=== PATIENT | male | born 1945 | race Two or more races ===

== ENCOUNTER 2017-12-11 09:34 | Emergency (ER) | payer BC, MEDICARE ==
[~2017-12-11] VITALS: Ht 172.7 cm; Wt 78.7 kg
[2017-12-11 09:44] VITALS: BP 165/83
[2017-12-11] MEDS ORDERED: MORPHINE SULFATE INJ 2 MG/ML DISP.SYRIN IM ONE (10:00)
[2017-12-11] MEDS ORDERED: MORPHINE SULFATE INJ 4 MG/ML DISP.SYRIN ONE (10:08)
== END 2017-12-11 11:03 | disposition home or self-care (01) ==
LOC: ER 09:41
DX: M24.812 Other specific joint derangements of left shoulder, not elsewhere classified (principal)
CPT/HCPCS: 73030; 96372; 99284; A4606; J2270; Z7610

== ENCOUNTER 2019-03-04 23:15 | Emergency (ER) | payer BC ==
[~2019-03-04] VITALS: Ht 170.2 cm; Wt 79.4 kg
[2019-03-04 23:37] VITALS: BP 120/62
[2019-03-04] MEDS ORDERED: KETOROLAC TROMETHAMINE INJ 60 MG/2 ML VIAL IM ONE (23:50)
[2019-03-04] MEDS ORDERED: LORAZEPAM INJ 2 MG/ML VIAL ONE (23:50)
[2019-03-05] MEDS: LORAZEPAM INJ 2 MG/ML VIAL IM ONE (00:01)
[2019-03-05] MEDS: KETOROLAC TROMETHAMINE INJ 60 MG/2 ML VIAL IM ONE (00:02)
--- NOTE | 2019-03-05 00:30 | NUR ---
Patient discharged to home in stable condition. Rx and Written and verbal after care instructions given. Patient verbalizes understanding of instruction.
== END 2019-03-05 00:41 | disposition home or self-care (01) ==
LOC: ER 23:17
DX: M13.812 Other specified arthritis, left shoulder (principal); M13.861 Other specified arthritis, right knee; F10.10 Alcohol abuse, uncomplicated; Y90.9 Presence of alcohol in blood, level not specified; I10 Essential (primary) hypertension; Z98.890 Other specified postprocedural states
CPT/HCPCS: 96372 ×2; 99283; J1885; J2060

== ENCOUNTER 2021-01-13 19:22 | Emergency (ER) | payer BC, OTHER ==
[~2021-01-13] VITALS: Ht 170.2 cm; Wt 79.4 kg
[2021-01-13 21:00] VITALS: BP 129/75
[2021-01-13] MEDS ORDERED: PRED50TA PO (22:17)
[2021-01-13] MEDS ORDERED: KETOROLAC TROMETHAMINE INJ 60 MG/2 ML VIAL IM ONE ×2 (22:28→22:30)
[2021-01-13] MEDS ORDERED: DEXAMETHASONE SOD PHOSPHATE 10 MG/ML VIAL ONE (22:28)
[2021-01-13] MEDS ORDERED: DEXAMETHASONE SOD PHOSPHATE 4 MG/ML VIAL IM ONE (22:30)
--- NOTE | 2021-01-13 22:49 | NUR ---
Patient discharged to home in stable condition. Written and verbal after care instructions given. Patient verbalizes understanding of instruction. Pt ambulatory with a steady gait
== END 2021-01-13 22:54 | disposition home or self-care (01) ==
LOC: ER 19:35
DX: M19.90 Unspecified osteoarthritis, unspecified site (principal); I10 Essential (primary) hypertension; Z79.899 Other long term (current) drug therapy
CPT/HCPCS: 96372 ×2; 99284; J1100; J1885